=== PATIENT | female | born 1990 | race African-American/Black ===

== ENCOUNTER 2016-11-13 12:55 | Emergency (ER) | payer SELFPAY ==
[2016-11-13 13:01] VITALS: BP 150/94; BMI 45.1
[2016-11-13] MEDS ORDERED: ZOFRAN TAB 4 MG PO STA (13:48)
--- NOTE | 2016-11-13 13:52 | DR.GENAD ---
HPI - PCP Primary Care Physician: none - HPI Comment HPI Comment: Sudden onset of cramping abd pain, n/v/d x 2 hours ago for which she had to leave work; persistent; no fever/chills; noone else sick; she has not eaten anything to cause it. - Complaint/Symptoms Chief Complaint:: stomach pain throwing up since this moring - Source History Provided: Patient - Mode of Arrival Mode of Arrival: Ambulatory - Timing Onset of Chief Complaint: 11/13/16 PMH - PMH Past Medical History: Yes Past Medical History: Hypertension Past Surgical History: No Surgical History: No History - Family History History of Family Medical Conditions: Yes Family Medical History: Diabetes Mellitus, Cancer, Heart Failure, Hypertension - Social History Does patient currently use any type of tobacco product: No Have you used tobacco products in the last 12 months: No Type of Tobacco Use: None Does any household member use tobacco: No Alcohol Use: None Do you use any recreational Drugs:: No Lives With: Family Lives Where: Home - infectious screening In the last 2 months have you had wt loss of >10#?: NO Have you had fever, night sweats or hemotysis?: No Have you traveled outside the country in the last 6 months?: No Isolation: Standard ROS - Review of Systems Constitutional: Malaise Eyes: No Symptoms Reported Respiratoy: No Symptoms Reported Cardiovascular: No Symptoms Reported Gastrointestinal/Abdominal: See HPI Genitourinary: No Symptoms Reported Neurological: No Symptoms Reported Musculoskeletal: No Symptoms Reported Integumentary: No Symptoms Reported Hematologic/Lymphatic: No Symptoms Reported PE - Vital Signs Vitals: Temperature 98.5 F Pulse Rate 100 Respiratory Rate 18 Blood Pressure [Left Arm] 113/66 Blood Pressure 150/94 O2 Sat by Pulse Oximetry 98 - General Limitations: No Limitations General Appearance: Alert, In No Apparent Distress - Head Head Exam: Normal Inspection - Eyes Eye exam: Normal Appearance - ENT ENT Exam: Normal Exam External Ear Exam: Normal External Inspection - Neck Neck Exam: Normal Inspection - Respiratory Respiratory Exam: Normal Lung Sounds Bilat Respiratory Exam: Bilateral Clear to Auscultation - Cardiovascular Cardiovascular Exam: Regular Rate - Abdominal Exam Abdominal Exam: Normal Bowel Sounds, Soft, Tenderness Abdominal Tenderness: Epigastrium - Extremities Extremities Exam: Normal Inspection - Neurologic Neurological Exam: Alert, Oriented X3 - Psychiatric Psychiatric Exam: Normal Affect, Normal Mood - Diagnosis Discharge Problem: Gastroenteritis - Discharge Plan Disposition: HOME, SELF-CARE Condition: Stable Prescriptions: Ondansetron [Zofran Odt] 4 mg PO Q8H PRN #12 tab PRN Reason: Nausea/Vomiting - Follow ups/Referrals Follow ups/Referrals: NFD,None [Primary Care Provider] - 3 days - Instructions Instructions: Viral Gastroenteritis, Adult Additional Instructions: push fluids
[2016-11-13] MEDS ORDERED: ZOFRAN TAB 4 MG ONE (13:56)
== END 2016-11-13 14:04 | disposition home or self-care (01) ==
LOC: ER 13:11
DX: K52.89 Other specified noninfective gastroenteritis and colitis (principal)
CPT/HCPCS: 99281; 99282; S0181

== ENCOUNTER 2016-12-03 07:16 | Emergency (ER) | payer SELFPAY ==
[2016-12-03 07:19] VITALS: BP 120/87; BMI 45.1
--- NOTE | 2016-12-03 07:47 | DR.GENAD ---
HPI - PCP Primary Care Physician: NFD - Complaint/Symptoms Chief Complaint Doctors Comments: Agree with statement Chief Complaint:: PT C/O SORE THORAT, CHEST HURTING FROM COUGHING AND H/A. PT STATES THESE SYMPOTMS STARTED YESTERDAY. - Source History Provided: Patient - Mode of Arrival Mode of Arrival: Ambulatory - Timing Onset of Chief Complaint: 12/02/16 PMH - PMH Past Medical History: Yes Past Medical History: Hypertension Past Surgical History: No Surgical History: No History - Family History History of Family Medical Conditions: Yes Family Medical History: Diabetes Mellitus, Cancer, Heart Failure, Hypertension - Social History Does any household member use tobacco: No Alcohol Use: None Do you use any recreational Drugs:: No Lives With: Family Lives Where: Home - infectious screening In the last 2 months have you had wt loss of >10#?: NO Have you had fever, night sweats or hemotysis?: No Have you traveled outside the country in the last 6 months?: No Isolation: Standard ROS - Review of Systems Eyes: No Symptoms Reported ENTM: Nose Discharge Respiratoy: No Symptoms Reported Cardiovascular: No Symptoms Reported Gastrointestinal/Abdominal: No Symptoms Reported Genitourinary: No Symptoms Reported Neurological: No Symptoms Reported Musculoskeletal: No Symptoms Reported Integumentary: No Symptoms Reported Hematologic/Lymphatic: No Symptoms Reported Endocrine: No Symptoms Reported Psychiatric: No Symptoms Reported All Other Systems: Reviewed and Negative PE - Vital Signs Vitals: Temperature 97.8 F Pulse Rate 100 Respiratory Rate 20 Blood Pressure [Left Arm] 113/66 Blood Pressure 120/87 O2 Sat by Pulse Oximetry 99 - General Limitations: No Limitations General Appearance: Alert, In No Apparent Distress - Head Head Exam: Normal Inspection - Eyes Eye exam: Normal Appearance, PERRL, EOMI - ENT ENT Exam: Normal Exam External Ear Exam: Normal External Inspection TM/Canal Exam: Bilateral Normal Nose Exam: Other (rhinorrhea) Mouth Exam: Normal Inspection Throat Exam: Normal Inspection (posterior pharynx erythematous) - Neck Neck Exam: Normal Inspection - Chest Chest Inspection: Normal Inspection - Respiratory Respiratory Exam: Normal Lung Sounds Bilat - Cardiovascular Cardiovascular Exam: Regular Rate, Normal Rhythm - Abdominal Exam Abdominal Exam: Normal Inspection Abdominal Tenderness: negative: RUQ, RLQ, LUQ, LLQ, Epigastrium, Suprapubic, Diffuse, Mild, Moderate, Severe, Other - Extremities Extremities Exam: Normal Inspection - Back Back Exam: Normal Inspection - Neurologic Neurological Exam: Alert, Oriented X3, CN II-XII Intact - Psychiatric Psychiatric Exam: Normal Affect - Skin Skin Exam: Warm, Dry, Intact ROR - Labs Reviewed Laboratory Results Reviewed?: Yes (influenza pending; strep negative) - Diagnosis Discharge Problem: Influenza-like symptoms Pharyngitis Qualifiers: Pharyngitis/tonsillitis etiology: unspecified etiology Qualified Code(s): J02.9 - Acute pharyngitis, unspecified - Discharge Plan Condition: Stable - Follow ups/Referrals Follow ups/Referrals: NFD,None [Primary Care Provider] - 3 days - Instructions
== END 2016-12-03 08:33 | disposition home or self-care (01) ==
LOC: ER 07:26
DX: J11.1 Influenza due to unidentified influenza virus with other respiratory manifestations (principal); J02.9 Acute pharyngitis, unspecified
CPT/HCPCS: 87070; 87502; 87503; 87880; 99282

== ENCOUNTER 2017-09-26 12:11 | Emergency (ER) | payer SELFPAY ==
[2017-09-26 12:17] VITALS: BP 133/86; BMI 45.1
--- NOTE | 2017-09-26 13:50 | DR.GENAD ---
HPI - PCP Primary Care Physician: NONE - Complaint/Symptoms Chief Complaint Doctors Comments: Patient presents today for evaluation of vomiting since last night and diarrhea x 2 today. She denies fever but hurt all over. She admits to sharp right side pain. Chief Complaint:: NONE - Source History Provided: Patient - Mode of Arrival Mode of Arrival: Ambulatory - Timing Onset of Chief Complaint: 09/26/17 PMH - PMH Past Medical History: Yes Past Medical History: Hypertension Past Surgical History: No Surgical History: No History - Family History History of Family Medical Conditions: Yes Family Medical History: Diabetes Mellitus, Cancer, Heart Failure, Hypertension - Social History Does patient currently use any type of tobacco product: No Have you used tobacco products in the last 12 months: No Type of Tobacco Use: None Does any household member use tobacco: No Alcohol Use: None Do you use any recreational Drugs:: No Lives With: Family Lives Where: Home - infectious screening In the last 2 months have you had wt loss of >10#?: NO Have you had fever, night sweats or hemotysis?: No Have you traveled outside the country in the last 6 months?: No Isolation: Standard ROS - Review of Systems Eyes: No Symptoms Reported ENTM: No Symptoms Reported, Hearing Loss Cardiovascular: No Symptoms Reported Gastrointestinal/Abdominal: No Symptoms Reported Genitourinary: No Symptoms Reported Neurological: No Symptoms Reported Musculoskeletal: No Symptoms Reported Integumentary: No Symptoms Reported Hematologic/Lymphatic: No Symptoms Reported Endocrine: No Symptoms Reported Psychiatric: No Symptoms Reported All Other Systems: Reviewed and Negative PE - Vital Signs Vitals: Temperature 98.0 F Pulse Rate 91 Respiratory Rate 20 Blood Pressure [Left Arm] 113/66 Blood Pressure 133/86 O2 Sat by Pulse Oximetry 97 - General General Appearance: Alert, In No Apparent Distress - Head Head Exam: Normal Inspection, Atraumatic - Eyes Eye exam: Normal Appearance, PERRL, EOMI - ENT ENT Exam: Normal Exam External Ear Exam: Normal External Inspection TM/Canal Exam: Bilateral Normal Nose Exam: Normal Nose Exam Mouth Exam: Normal Inspection Throat Exam: Normal Inspection - Neck Neck Exam: Normal Inspection - Chest Chest Inspection: Normal Inspection - Respiratory Respiratory Exam: Normal Lung Sounds Bilat Respiratory Exam: Bilateral Clear to Auscultation - Cardiovascular Cardiovascular Exam: Regular Rate, Normal Rhythm - Abdominal Exam Abdominal Exam: Normal Inspection, Normal Bowel Sounds Abdominal Tenderness: RUQ, RLQ, Diffuse - Extremities Extremities Exam: Normal Inspection, Full ROM - Back Back Exam: Normal Inspection - Neurologic Neurological Exam: Alert, Oriented X3, CN II-XII Intact - Psychiatric Psychiatric Exam: Normal Affect - Skin Skin Exam: Warm, Dry, Intact Course - Reevaluation 1st: Improved ROR - Labs Reviewed Laboratory Results Reviewed?: Yes (Urine: wbc 5-8,Leuk estrace 2+, Strep positive) Result Diagrams: 09/26/17 14:10 09/26/17 14:10 Laboratory: WBC 14.2 X10^3/uL (3.6-10.0) H 09/26/17 14:10 RBC 4.58 X10^6/uL (3.5-5.4) 09/26/17 14:10 Hgb 12.6 g/dL (12.0-16.0) 09/26/17 14:10 Hct 37.7 % (36.0-47.0) 09/26/17 14:10 MCV 82.3 fL (80.0-100.0) 09/26/17 14:10 MCH 27.4 pg (27.0-34.0) 09/26/17 14:10 MCHC 33.3 g/dL (33.0-35.0) 09/26/17 14:10 RDW 13.4 % (11.6-16.5) 09/26/17 14:10 Plt Count 478 X10^3/uL (150.0-450.0) H 09/26/17 14:10 MPV 8.0 fL (7.4-11.0) 09/26/17 14:10 Neut % 79.0 % (42.0-75.0) H 09/26/17 14:10 Lymph % 14.5 % (21.0-51.0) L 09/26/17 14:10 Borden % 5.5 % (0.0-13.0) 09/26/17 14:10 Eos % 0.7 % (0.9-2.9) L 09/26/17 14:10 Baso % 0.3 % (0.2-1.0) 09/26/17 14:10 Neut # 11.2 x10^3/uL (2.2-4.8) H 09/26/17 14:10 Lymph # 2.1 X10^3/uL (1.3-2.9) 09/26/17 14:10 Borden # 0.8 x10^3/uL (0.3-0.8) 09/26/17 14:10 Eos # 0.1 x10^3/uL (0.0-0.2) 09/26/17 14:10 Baso # 0.0 X10^3/uL (0.0-0.1) 09/26/17 14:10 Absolute Nucleated RBC 0.0 /100WBC 09/26/17 14:10 Sodium 139 mmol/L (136-145) 09/26/17 14:10 Corrected Sodium TNP 09/26/17 14:10 Potassium 3.6 mmol/L (3.5-5.1) 09/26/17 14:10 Chloride 103 mmol/L (98-107) 09/26/17 14:10 Carbon Dioxide 26.1 mmol/L (21-32) 09/26/17 14:10 BUN 11 mg/dL (7-18) 09/26/17 14:10 Creatinine 0.85 mg/dL (0.55-1.02) 09/26/17 14:10 Est GFR (MDRD) Af Amer > 60 (>60) 09/26/17 14:10 Est GFR (MDRD) Non-Af > 60 (>60) 09/26/17 14:10 Glucose 85 mg/dL (65-99) 09/26/17 14:10 Calcium 8.7 mg/dL (8.5-10.1) 09/26/17 14:10 Corrected Calcium TNP 09/26/17 14:10 Total Bilirubin 0.40 mg/dL (0.2-1.0) 09/26/17 14:10 AST 21 Units/L (15-37) 09/26/17 14:10 ALT 25 Units/L (12-78) 09/26/17 14:10 Alkaline Phosphatase 59 Units/L (46-116) 09/26/17 14:10 C-Reactive Protein 3.50 mg/L (0-3.0) H 09/26/17 14:10 Total Protein 9.6 g/dL (6.4-8.2) H 09/26/17 14:10 Albumin 3.7 g/dL (3.4-5.0) 09/26/17 14:10 Globulin 5.9 g/dL (2.5-4.5) H 09/26/17 14:10 Albumin/Globulin Ratio 0.6 Ratio (1.1-2.1) L 09/26/17 14:10 Specimen Type Clean catch urine 09/26/17 14:12 Urine Color Yellow (YELLOW) 09/26/17 14:12 Urine Appearance Hazy (CLEAR) 09/26/17 14:12 Urine pH 5.0 (5.0 - 8.0) 09/26/17 14:12 Ur Specific Lucien 1.025 (1.000-1.030) 09/26/17 14:12 Urine Protein Negative (NEGATIVE) 09/26/17 14:12 Urine Glucose (UA) Negative (NEGATIVE) 09/26/17 14:12 Urine Ketones Negative (NEGATIVE) 09/26/17 14:12 Urine Occult Blood Negative (NEGATIVE) 09/26/17 14:12 Urine Nitrite Negative (NEGATIVE) 09/26/17 14:12 Urine Bilirubin Negative (NEGATIVE) 09/26/17 14:12 Urine Urobilinogen Normal (NORMAL) 09/26/17 14:12 Ur Leukocyte Esterase 3+ (NEGATIVE) 09/26/17 14:12 Urine RBC 0-5 /HPF (NEGATIVE) 09/26/17 14:12 Urine WBC 5-8 /HPF (NEGATIVE) 09/26/17 14:12 Ur Squamous Epith Cells Moderate /HPF (NEGATIVE) 09/26/17 14:12 Urine Bacteria Trace /HPF (NEGATIVE) 09/26/17 14:12 Urine Trichomonas Few /HPF (NEGATIVE) 09/26/17 14:12 Ur Culture Indicated? No/not indicated 09/26/17 14:12 Influenza Type A (PCR) Negative (NEGATIVE) 09/26/17 14:12 Influenza Type B (PCR) Negative (NEGATIVE) 09/26/17 14:12 S. pyogenes (TEM-PCR) Detected (NOT DETECT) A 09/26/17 14:12 - XRAY XRAY Interpreted by: Radiologist (Chest: No acute or significant chest/ abdominal abnormality demonstrated.) - Diagnosis Discharge Problem: Strep pharyngitis UTI (urinary tract infection) Qualifiers: Urinary tract infection type: site unspecified Hematuria presence: without hematuria Qualified Code(s): N39.0 - Urinary tract infection, site not specified - Discharge Plan Condition: Stable - Follow ups/Referrals Follow ups/Referrals: NFD,None [Primary Care Provider] - 3 days - Instructions
[2017-09-26] MEDS ORDERED: ZOFRAN INJ 4 MG VIAL IVP ONE (13:52)
[2017-09-26] MEDS ORDERED: NS 1000 ML 1,000 ML IV ONE (13:52)
[2017-09-26] MEDS ORDERED: NS 1000 ML 1,000 ML ONE (13:58)
[2017-09-26] MEDS ORDERED: ZOFRAN INJ 4 MG VIAL ONE (13:59)
[2017-09-26 14:20] LABS: BASOPHILS % (AUTO) 0.3 % (0.2-1.0); EOSINOPHILS # (AUTO) 0.1 x10^3/uL (0.0-0.2); EOSINOPHILS % (AUTO) 0.7 % (0.9-2.9); HEMATOCRIT 37.7 % (36.0-47.0); HEMOGLOBIN 12.6 g/dL (12.0-16.0); LYMPHOCYTES # (AUTO) 2.1 X10^3/uL (1.3-2.9); LYMPHOCYTES % (AUTO) 14.5 % (21.0-51.0); MEAN CORPUSCULAR HEMOGLOBIN 27.4 pg (27.0-34.0); MEAN CORPUSCULAR HGB CONC 33.3 g/dL (33.0-35.0); MEAN CORPUSCULAR VOLUME 82.3 fL (80.0-100.0); MONOCYTES # (AUTO) 0.8 x10^3/uL (0.3-0.8); MONOCYTES % (AUTO) 5.5 % (0.0-13.0); NEUTROPHILS # (AUTO) 11.2 x10^3/uL (2.2-4.8); PLATELET COUNT 478 X10^3/uL (150.0-450.0); RED BLOOD COUNT 4.58 X10^6/uL (3.5-5.4); RED CELL DISTRIBUTION WIDTH 13.4 % (11.6-16.5); WHITE BLOOD COUNT 14.2 X10^3/uL (3.6-10.0)
[2017-09-26 14:23] LABS: BILIRUBIN,URINE NEGATIVE (NEGATIVE); BLOOD/HEMOGLOBIN,URINE NEGATIVE (NEGATIVE); GLUCOSE, URINE NEGATIVE (NEGATIVE); KETONES,URINE NEGATIVE (NEGATIVE); LEUKOCYTE ESTERASE ,URINE 3+ (NEGATIVE); NITRITES,URINE NEGATIVE (NEGATIVE); PROTEIN,URINE NEGATIVE (NEGATIVE); UROBILINOGEN,URINE NORMAL (NORMAL)
[2017-09-26 14:36] LABS: APPEARANCE,URINE HAZY (CLEAR); BACTERIA,URINE TRACE /HPF (NEGATIVE); COLOR,URINE YELLOW (YELLOW); RBC,URINE 0-5 /HPF (NEGATIVE); SQUAMOUS EPITHELIAL CELL,UR MODERATE /HPF (NEGATIVE); TRICHOMONAS,URINE FEW /HPF (NEGATIVE)
[2017-09-26 14:45] LABS: ALANINE AMINOTRANSFERASE 25 Units/L (12-78); ALBUMIN 3.7 g/dL (3.4-5.0); ALKALINE PHOSPHATASE 59 Units/L (46-116); ASPARTATE AMINO TRANSFERASE 21 Units/L (15-37); BLOOD UREA NITROGEN 11 mg/dL (7-18); CALCIUM 8.7 mg/dL (8.5-10.1); CARBON DIOXIDE 26.1 mmol/L (21-32); CHLORIDE 103 mmol/L (98-107); CREATININE 0.85 mg/dL (0.55-1.02); SODIUM 139 mmol/L (136-145); TOTAL PROTEIN 9.6 g/dL (6.4-8.2); eGFR BLACK RACES > 60 (>60); eGFR NON BLACK RACES > 60 (>60)
[2017-09-26] MEDS ORDERED: TORADOL 30 MG VIAL IVP ONE (14:46)
[2017-09-26] MEDS ORDERED: TORADOL 30 MG VIAL ONE (14:47)
--- NOTE | 2017-09-26 14:49 | RAD ---
Examination: Abdomen with PA chest History: Abdominal pain Findings: PA upright chest demonstrates normal heart size with clear lungs and pleural spaces. Subseq uent supine and upright views of abdomen demonstrate no significant intestinal distention, free air, mass formation or pathologic calcification. Impression: No acute or significant chest/abdominal abnormality demonstrated. Reported By:
[2017-09-26] MEDS ORDERED: BICILLIN L-A IM ONE ×2 (14:57→15:01)
== END 2017-09-26 15:07 | disposition home or self-care (01) ==
LOC: ER 12:20
DX: N39.0 Urinary tract infection, site not specified (principal); J02.0 Streptococcal pharyngitis
CPT/HCPCS: 36415; 74022; 80053; 81001; 85025; 86140; 87502; 87651; 96365; 96372; 96374; 96375; 99283; A4222; J0570; J1885; J2405

== ENCOUNTER 2017-11-23 14:50 | Emergency (ER) | payer SELFPAY ==
[2017-11-23 14:55] VITALS: BP 140/96; BMI 48.4
--- NOTE | 2017-11-23 15:36 | DR.EXTPAIN ---
HPI - Time seen Time seen: 15:10 - PCP Primary Care Physician: LISSETH - HPI Comment HPI Comment: woke up 2d ago with pain, tingling left 5th finger, pt R handed. No hx trauma to finger, but did bump left elbow 4d ago. - Complaint/Symptoms Chief Complaint:: PT STATED HER LEFT PINKY FINGER HAS BEEN HURTING FOR 2 DAYS, SHE STATED IT FEELS LIKE A KNIFE IS STUCK IN IT. Self Treatment fo Chief Complaint: tried splinting yest but no improvement - Source History Provided: Patient - Mode of arrival Mode of Arrival: Ambulatory - Timing Onset of Chief Complaint: 11/21/17 PMH - PMH Past Medical History: No Past Medical History: Hypertension Past Medical History Comment: no contrib PMH Past Surgical History: No Surgical History: No History - Family History History of Family Medical Conditions: Yes Family Medical History: Diabetes Mellitus, Cancer, Heart Failure, Hypertension - Social History Does patient currently use any type of tobacco product: No Have you used tobacco products in the last 12 months: No Type of Tobacco Use: None Does any household member use tobacco: No Alcohol Use: None Do you use any recreational Drugs:: No Lives With: Family Lives Where: Home - infectious screening In the last 2 months have you had wt loss of >10#?: NO Have you had fever, night sweats or hemotysis?: No Have you traveled outside the country in the last 6 months?: No Isolation: Standard ROS - Review of Systems Constitutional: No Symptoms Reported Eyes: No Symptoms Reported ENTM: No Symptoms Reported Respiratoy: No Symptoms Reported Cardiovascular: No Symptoms Reported Gastrointestinal/Abdominal: No Symptoms Reported Neurological: No Symptoms Reported Musculoskeletal: Left, Hand Integumentary: No Symptoms Reported Hematologic/Lymphatic: No Symptoms Reported Endocrine: No Symptoms Reported Psychiatric: No Symptoms Reported All Other Systems: Reviewed and Negative PE - Vital Signs Vitals: Temperature 98.9 F Pulse Rate 99 Respiratory Rate 16 Blood Pressure [Left Arm] 113/66 Blood Pressure 140/96 O2 Sat by Pulse Oximetry 98 - General Limitations: No Limitations General Appearance: Alert, In No Apparent Distress - Head Head Exam: Normal Inspection, Atraumatic - Eyes Eye exam: Normal Appearance - ENT ENT Exam: Normal Exam, Normal Oropharynx - Abdominal Exam Abdominal Exam: Normal Inspection, Normal Bowel Sounds, Soft - Upper Extremities Shoulder Exam: Normal Inspection Elbow Exam: Normal Inspection, Full ROM. negative: Tenderness, Swelling, Abrasion, Crepitus, Dislocation, Erythema, Effusion, Pain w/ pronation Forearm Exam: Normal Inspection, Full ROM. negative: Tenderness, Swelling Hand Exam: Normal Inspection, Tenderness, Other (left 5th finger +TTP. Nl inspection.). negative: Swelling, Abrasion, Laceration, Deformity, Crepitus, Erythema, Dislocation, Amputation, Nail Avulsion, Subungual Hematoma Neuromotor Exam: Normal Exam (L 5th finger +TTP, nl inspection. Flexion and ext with mod pain), Wrist Extension ROR - XRAY XRAY Interpreted by: Radiologist XRAY Findings: left hand, left elbow both nonacute - Diagnosis Discharge Problem: Pain in finger of left hand - Discharge Plan Disposition: HOME, SELF-CARE Condition: Stable Prescriptions: Ketorolac Tromethamine [Toradol Tab] 10 mg PO Q8H PRN #12 tab PRN Reason: Pain - Follow ups/Referrals Follow ups/Referrals: NFD,None [Primary Care Provider] - 3 days - Instructions
--- NOTE | 2017-11-23 15:59 | RAD ---
HAND RADIOGRAPHS CLINICAL HISTORY: 27-year-old female with 5th digit pain. COMPARISON: Left hand radiographs 10/01/2016. FINDINGS: 3 views of the left hand were obtained. These demonstrate no acute fracture or malalignment . The joint spaces are maintained. There is no erosion, aggressive bone lesion or abnormal periostea l reaction. There is no soft tissue calcification or gas. The mineralization is maintained. IMPRESSION: No acute fracture or osseous abnormality demonstrated on left hand radiographs. Reported By:
--- NOTE | 2017-11-23 16:00 | RAD ---
HISTORY: Left elbow and 5th digit pain, paresthesia Study: Three views left elbow Comparison: None Findings: Normal alignment. No acute fracture or dislocation. The soft tissues are unremarkable. IMPRESSION: 1. No acute osseous abnormality. Reported By:
[2017-11-23] MEDS ORDERED: DECADRON INJ IM ONE ×2 (16:08→16:12)
[2017-11-23] MEDS ORDERED: DECADRON INJ ONE (16:14)
== END 2017-11-23 16:29 | disposition home or self-care (01) ==
LOC: ER 14:57
DX: M79.645 Pain in left finger(s) (principal)
CPT/HCPCS: 73070; 73130; 96372; 99282; J1100